=== PATIENT | female | born 1950 ===

== ENCOUNTER 2018-01-18 07:01 | Day surgery (SDC) | payer OTHER ==
[~2018-01-18 07:01] MED LIST: LOSARTAN-HCTZ1 EAC1 PO; SIMVASTATIN10 MG PO; TRADJENTA5 MG PO
== END 2018-01-18 11:15 | disposition home or self-care (01) ==
LOC: AMB-ENDOS 07:01
DX: K64.2 Third degree hemorrhoids (principal); Z85.038 Personal history of other malignant neoplasm of large intestine

== ENCOUNTER 2019-03-14 05:45 | Day surgery (SDC) | payer OTHER | END 2019-03-14 08:55 | disposition home or self-care (01) | LOC: AMB-ENDOS 05:45 | DX: K64.1 Second degree hemorrhoids (principal) ==

== ENCOUNTER 2020-05-07 06:00 | Day surgery (SDC) | payer OTHER | END 2020-05-07 10:40 | disposition home or self-care (01) | LOC: AMB-ENDOS 06:00 | PROVIDERS: ATTEND Colon & Rectal Surgery | DX: D12.0 Benign neoplasm of cecum (principal); K64.1 Second degree hemorrhoids; Z20.828 Contact with and (suspected) exposure to other viral communicable diseases ==